=== PATIENT | female | born 1990 | race African-American/Black ===

== ENCOUNTER 2024-04-26 09:28 | Emergency (ER) | payer OTHER ==
[2024-04-26 10:51] VITALS: TEMP 98.4; BMI 24.0
[2024-04-26] MEDS ORDERED: MAG HYDROX/AL HYDROX/SIMETH 30 ML UNIT-DOSE CUP ONE (11:02)
[2024-04-26] MEDS: MAG HYDROX/AL HYDROX/SIMETH 30 ML UNIT-DOSE CUP PO ONE (11:05)
[2024-04-26 11:27] LABS: BASO % 0.4 % (0-2.0); EOS % 2.3 % (0-4.5); HEMATOCRIT 34.4 % (32.4-45.2); LYMPH % 38.5 % (8-40); MEAN CELL VOLUME 84.3 fl (80-96); MEAN PLT VOLUME 8.8 fl (7.5-11.1); MONO % 5.4 % (3.8-10.2); NEUT % 53.4 % (42.8-82.8); PLATELET COUNT 218 10^3/uL (134-434); RBC 4.09 M/mm3 (3.60-5.2); RDW 14.9 % (11.6-15.6); WHITE BLOOD COUNT 3.7 K/mm3 (4.0-10.0)
[2024-04-26 11:47] LABS: POTASSIUM 3.6 mmol/L (3.5-5.1)
[2024-04-26 11:49] LABS: CALCIUM 9.3 mg/dL (8.5-10.1)
[2024-04-26 11:50] LABS: ALBUMIN 3.7 g/dl (3.4-5.0); BLOOD UREA NITROGEN 9.8 mg/dL (7-18)
[2024-04-26 11:53] LABS: CREATININE 0.9 mg/dL (0.55-1.3)
[2024-04-26 11:54] LABS: BILIRUBIN,TOTAL 0.4 mg/dL (0.2-1)
[2024-04-26 13:22] VITALS: BP 148/78; PULSE 50; RESP 15
== END 2024-04-26 13:30 | disposition home or self-care (01) ==
LOC: JER 09:28
DX: R07.89 Other chest pain (principal); Z20.822 Contact with and (suspected) exposure to COVID-19
CPT/HCPCS: 0241U-QW; 36415; 71045-TC-FY; 80053; 83690; 84484; 84703; 85025; 85379; 93005; 93010; 99285-25